=== PATIENT | male | born 1965 | race Caucasian/White ===

== ENCOUNTER 2016-09-25 14:29 | Emergency (ER) | payer OTHER ==
[~2016-09-25] VITALS: Ht 190.5 cm; Wt 114.5 kg
[2016-09-25 15:05] VITALS: BP 158/79
[2016-09-25 16:15] LABS: BLOOD UREA NITROGEN 33 mg/dL (7-18)
[2016-09-25 16:20] LABS: ASPARTATE AMINO TRANSFERASE 76 U/L (15-37)
== END 2016-09-25 18:22 | disposition home or self-care (01) ==
LOC: ED 18:16
DX: K40.91 Unilateral inguinal hernia, without obstruction or gangrene, recurrent (principal)
CPT/HCPCS: 36415; 76700; 80053; 83690; 85025; 99285